=== PATIENT | female | born 1960 | race Caucasian/White ===

== ENCOUNTER 2017-02-17 14:37 | Emergency (ER) | payer BC, OTHER ==
--- NOTE | 2017-02-17 15:10 | ER PHYSICIAN DOCUMENTATION ---
Physician Documentation [facility] Name:Jesus Heard Age:56 yrs Sex:Female :1960 Arrival Date:02/17/2017 Time:14:37 Bed1 Private MD: Jono Flores Disposition: 02/17 14:55 Chart complete. cd Disposition: 02/17/17 14:54 Discharged to Home/Self Care. Impression: Acute Sinusitis - : Acute, Seasonal Allergy, Allergic Rhinitis. - Condition is Fair. - Discharge Instructions: SINUSITIS, Abx Tx, Aarane - ALLERGIC RHINITIS. - Prescriptions for Ceftin 500 mg Oral - take 1 tablet by ORAL route every 12 hours for 14 days; 28 tablet. - Medical Reconciliation form form. - Follow up: Private Physician; When: 10 - 14 days; Reason: Recheck today's complaints, Continuance of care. - Problem is new. - Symptoms are unchanged. - Notes: Ceftin 500mg by mouth every 12 hours for 14 days Zhyrtec-D as directed for 7 days Normal Saline Nasal washes twice a day Flonase Nasal spray 2 sprays in each nostril every 12 hours for 7 days Drink 2 - 3 quarts of water every day Descend to lower elevation [place]. Ibuprofen 800mg by mouth every 6 hours with food for 2 - 3 days. HPI: 14:42 This 56 yrs old Female presents to ER via Walk In with complaints of Sinus cd Congestion and pain. 14:42 Onset: The symptom(s)/episode began/occurred acutely, 3 day(s) ago. Severity of cd symptoms: At their worst the symptoms were severe, in the emergency department the symptoms are unchanged. Modifying factors: The symptoms are alleviated by nothing, the symptoms are aggravated by pollen. Associated signs and symptoms: Pertinent positives: rhinorrhea, sinus pain, congestion, headache, green nasal discharge, Pertinent negatives: fever. The patient has experienced similar episodes in the past. The patient has been recently seen at an urgent care, yesterday, for similar complaints, was given a prescription for antibiotics, placed on Z-Pack, not getting better. Historical: - Allergies: No known drug Allergies; - Home Meds: 1. None - Tetanus: < 10 years. - Ebola Screening: : No symptoms or risks identified at this time. . - Immunization history: Vaccine Information Sheet provided Flu Vaccine < 1 year. - Social history: Smoking status: Patient states was never smoker of tobacco. ROS: 14:55 Constitutional: Negative for chills, fever, poor PO intake. cd 14:55 ENT: Positive for sinus congestion, sinus pain, Negative for ear pain, sore throat. 14:55 Neck: Negative for acute changes. 14:55 Respiratory: Negative for cough, shortness of breath, sputum production, wheezing. 14:55 Neuro: Positive for headache, Negative for altered mental status. 14:55 All other systems are negative. Exam: 14:55 Constitutional: The patient appears alert, awake, non-diaphoretic, non-toxic, well cd developed, well nourished, anxious, obese. 14:55 Head/face: Sinus tenderness, that is moderate, is located over the right frontal sinus, left frontal sinus, right ethmoid sinus, left ethmoid sinus, right maxillary sinus and left maxillary sinus. 14:55 Eyes: Pupils: equal, round, and reactive to light and accomodation. 14:55 ENT: TM's: are normal, Mouth: is normal, Posterior pharynx: is normal, Voice: is normal. 14:55 Neck: Exam negative for acute changes, ROM/movement: is normal. 14:55 Respiratory: Respirations: normal, no acute changes, Breath sounds: are normal, clear throughout. Vital Signs: 14:43 BP 162 / 80; Pulse 106; Resp 24; Temp 98.7(O); Pulse Ox 95% on R/A; Weight 90.72 kg arc (R); Height 5 ft. 5 in. (165.10 cm) (R); Pain 7/10; 14:43 Body Mass Index 33.28 (90.72 kg, 165.10 cm) arc MDM: 14:53 Patient medically screened. cd 14:55 Data reviewed: vital signs, nurses notes, old medical records, and as a result, I will cd discharge patient, administer antibiotics Ceftin and have her stop the Z-Pack. I will review all treatments necessary to get better.. Data interpreted: Pulse oximetry: on room air is 95 %. Interpretation: normal. Counseling: I had a detailed discussion with the patient and/or guardian regarding: the historical points, exam findings, and any diagnostic results supporting the discharge/admit diagnosis, the need for outpatient follow up, for a recheck, with the patient's primary care provider, to return to the emergency department if symptoms worsen or persist or if there are any questions or concerns that arise at home. Response to treatment: There is no appreciated change of the patient's symptoms at this time, and as a result, I will discharge patient. Dispensed Medications: No medications were administered Signatures: Jono Hwang MD MD cd King, Melody mk4
--- NOTE | 2017-02-17 15:10 | ER NURSING DOCUMENTATION ---
Nurse's Notes [facility] Name:Jesus Heard Age:56 yrs Sex:Female :1960 Arrival Date:02/17/2017 Time:14:37 Bed1 Private MD: Diagnosis:Acute Sinusitis-: Acute;Seasonal Allergy, Allergic Rhinitis Presentation: 02/17 14:45 Acuity: TELMA 3 lp 14:47 Presenting complaint: Patient states: Nasal congestion x 3 days. FLOOD. Transition of 4 care: Home. 14:47 Method Of Arrival: Walk In [facility] Triage Assessment: 14:53 General: Appears in no apparent distress, Behavior is cooperative. Pain: Complains of 4 pain in forehead Pain does not radiate. Historical: - Allergies: No known drug Allergies; - Home Meds: 1. None - Tetanus: < 10 years. - Ebola Screening: : No symptoms or risks identified at this time. . - Immunization history: Vaccine Information Sheet provided Flu Vaccine < 1 year. - Social history: Smoking status: Patient states was never smoker of tobacco. Screenin:54 Infectious Disease Risk None. Abuse screen: Denies threats or abuse. Nutritional mk4 screening: No deficits noted. Assessment: 14:53 See Triage Assessment done by same RN. mk4 Vital Signs: 14:43 BP 162 / 80; Pulse 106; Resp 24; Temp 98.7(O); Pulse Ox 95% on R/A; Weight 90.72 kg arc (R); Height 5 ft. 5 in. (165.10 cm) (R); Pain 7/10; 14:43 Body Mass Index 33.28 (90.72 kg, 165.10 cm) arc ED Course: 14:38 Patient arrived in ED. ama 14:45 Triage completed. lp 14:47 Deneen Hernandez is Primary Nurse. mk4 14:53 Jono Hwang MD is Attending Physician. cd 14:53 Bed in low position Call Light in Reach. Family accompanied patient. mk4 14:55 Valuables Remains with patient. Pulse ox on. mk4 Administered Medications: No medications were administered Outcome: 14:54 Discharge ordered by MD. cd 15:09 Discharged to home ambulatory. mk4 15:09 Condition: good 15:09 Discharge Assessment: Patient awake, alert and oriented x 3. No cognitive and/or functional deficits noted. Patient verbalized understanding of disposition instructions. 15:09 Instructed on discharge instructions, follow up and referral plans. medication usage, Demonstrated understanding of instructions, medications, Prescriptions given X 1. 15:10 Patient left the ED. mk4 02/18 17:17 Discharge F/U Call: Spoke with: patient. Are you having any pain? no. Have you filled lc your prescriptions? yes. Did your discharge instructions answer all of your questions? yes Overall Care on a scale of 1-10 with 10 being the best care, you rate our care as: Other comments: FEELING BETTER, NO QUESTIONS Signatures: Mary Walker, RN RN Francia Bragg RN RN lp Jono Hwang MD MD cd Averdick, Andrew, Reg Reg Deneen Vernon [facility] Mary Avalos, Reg Reg alex
== END 2017-02-17 15:10 | disposition home or self-care (01) ==
LOC: ER 14:37
DX: J01.80 Other acute sinusitis (principal); J30.1 Allergic rhinitis due to pollen; R51 Headache
CPT/HCPCS: 99283